=== PATIENT | female | born 1970 | race Caucasian/White ===

== ENCOUNTER 2019-02-11 19:03 | Emergency (ER) | payer MEDICAID ==
[~2019-02-11] VITALS: Ht 160 cm; Wt 56.7 kg
[2019-02-11 19:15] VITALS: Ht 160 cm; Wt 56.7 kg
[2019-02-11 20:32] VITALS: BP 115/68
== END 2019-02-11 20:32 | disposition home or self-care (01) ==
LOC: ED 19:03
DX: K12.1 Other forms of stomatitis (principal); Z88.0 Allergy status to penicillin

== ENCOUNTER 2019-05-06 22:05 | Emergency (ER) | payer MEDICAID ==
[~2019-05-06] VITALS: Ht 160 cm; Wt 56.7 kg
[2019-05-06 22:16] VITALS: Ht 160 cm; Wt 56.7 kg
[2019-05-06 23:56] VITALS: BP 119/68
== END 2019-05-06 23:56 | disposition home or self-care (01) ==
LOC: ED 22:05
DX: H10.9 Unspecified conjunctivitis (principal); Z88.0 Allergy status to penicillin

== ENCOUNTER 2019-05-29 20:53 | Emergency (ER) | payer OTHER ==
[~2019-05-29] VITALS: Ht 160 cm; Wt 54.9 kg
[2019-05-29 21:07] VITALS: Ht 160 cm; Wt 54.9 kg
[2019-05-30 00:31] VITALS: BP 108/70
== END 2019-05-30 00:31 | disposition home or self-care (01) ==
LOC: ED 20:53
DX: R51 Headache (principal); Z88.0 Allergy status to penicillin
CPT/HCPCS: J1885; J8597; Q0163

== ENCOUNTER 2019-08-01 18:01 | Emergency (ER) | payer OTHER ==
[~2019-08-01] VITALS: Ht 160 cm; Wt 54.4 kg
[2019-08-01 18:28] VITALS: Ht 160 cm; Wt 54.4 kg
[2019-08-01 20:27] VITALS: BP 106/68
== END 2019-08-01 20:27 | disposition home or self-care (01) ==
LOC: ED 18:01
DX: M13.861 Other specified arthritis, right knee (principal); M13.841 Other specified arthritis, right hand; M54.2 Cervicalgia; Z98.51 Tubal ligation status
CPT/HCPCS: J1100; J1885

== ENCOUNTER 2019-08-12 17:10 | Emergency (ER) | payer OTHER ==
[~2019-08-12] VITALS: Ht 160 cm; Wt 54.4 kg
[2019-08-12 17:24] VITALS: Ht 160 cm; Wt 54.4 kg
[2019-08-12 18:16] VITALS: BP 108/64
== END 2019-08-12 18:16 | disposition home or self-care (01) ==
LOC: ED 17:10
DX: M06.832 Other specified rheumatoid arthritis, left wrist (principal); M06.831 Other specified rheumatoid arthritis, right wrist; E03.9 Hypothyroidism, unspecified; Z88.0 Allergy status to penicillin
CPT/HCPCS: J2920

== ENCOUNTER 2019-09-08 11:55 | Emergency (ER) | payer OTHER ==
[~2019-09-08] VITALS: Ht 160 cm; Wt 56.2 kg
[2019-09-08 11:59] VITALS: Ht 160 cm; Wt 56.2 kg
[2019-09-08 13:02] VITALS: BP 118/71
== END 2019-09-08 13:02 | disposition home or self-care (01) ==
LOC: ED 11:55
DX: M25.532 Pain in left wrist (principal); M25.531 Pain in right wrist; J45.909 Unspecified asthma, uncomplicated; E03.9 Hypothyroidism, unspecified; M06.9 Rheumatoid arthritis, unspecified; Z88.0 Allergy status to penicillin
CPT/HCPCS: J1100; J1885

== ENCOUNTER 2020-04-30 12:33 | Emergency (ER) | payer OTHER ==
[~2020-04-30] VITALS: Ht 160 cm; Wt 58.1 kg
[2020-04-30 12:43] VITALS: Ht 160 cm; Wt 58.1 kg
[2020-04-30 15:00] VITALS: BP 104/73
== END 2020-04-30 15:00 | disposition home or self-care (01) ==
LOC: ED 12:33
DX: S05.01XA Injury of conjunctiva and corneal abrasion without foreign body, right eye, initial encounter (principal); J45.909 Unspecified asthma, uncomplicated; E03.9 Hypothyroidism, unspecified; M06.9 Rheumatoid arthritis, unspecified; Z88.0 Allergy status to penicillin; X58.XXXA Exposure to other specified factors, initial encounter; Y93.89 Activity, other specified; Y92.89 Other specified places as the place of occurrence of the external cause; Y99.8 Other external cause status

== ENCOUNTER 2020-09-09 14:31 | Emergency (ER) | payer OTHER ==
[~2020-09-09] VITALS: Ht 160 cm; Wt 59.4 kg
[2020-09-09 14:38] VITALS: Ht 160 cm; Wt 59.4 kg
[2020-09-09 16:10] VITALS: BP 131/71
== END 2020-09-09 17:28 | disposition home or self-care (01) ==
LOC: ED 14:31
DX: H16.001 Unspecified corneal ulcer, right eye (principal); J45.909 Unspecified asthma, uncomplicated; E03.9 Hypothyroidism, unspecified; M06.9 Rheumatoid arthritis, unspecified; Z88.0 Allergy status to penicillin

== ENCOUNTER 2020-10-23 08:07 | Emergency (ER) | payer OTHER ==
[~2020-10-23] VITALS: Ht 160 cm; Wt 61.2 kg
[2020-10-23 08:18] VITALS: Ht 160 cm; Wt 61.2 kg
[2020-10-23 09:51] VITALS: BP 121/86
== END 2020-10-23 09:51 | disposition home or self-care (01) ==
LOC: ED 08:07
DX: L03.011 Cellulitis of right finger (principal); J45.909 Unspecified asthma, uncomplicated; E03.9 Hypothyroidism, unspecified; M06.9 Rheumatoid arthritis, unspecified; Z88.0 Allergy status to penicillin

== ENCOUNTER 2020-10-26 20:31 | Emergency (ER) | payer OTHER ==
[~2020-10-26] VITALS: Ht 160 cm; Wt 65.8 kg
[2020-10-26 20:35] VITALS: BP 114/69; Ht 160 cm; Wt 65.8 kg
== END 2020-10-26 22:56 | disposition home or self-care (01) ==
LOC: ED 20:31
DX: Z53.21 Procedure and treatment not carried out due to patient leaving prior to being seen by health care provider (principal)